=== PATIENT | male | born 1950 | race Caucasian/White ===

== ENCOUNTER 2016-10-23 15:11 | Observation (INO) | payer OTHER ==
[2016-10-23] MEDS ORDERED: MORPHINE SULFATE 4 MG/ML SYRINGE IV STA (15:54)
[2016-10-23] MEDS ORDERED: SODIUM CHLORIDE 0.9% 1,000 ML IV STA (15:54)
[2016-10-23] MEDS ORDERED: RX INFO: IV CONTRAST WAS GIVEN 1 EACH MISC MISCELLANE PRN (15:58)
[2016-10-23 16:28] LABS: Basophils % (A) 0 %; CH 30.5; CHCM 34.4; Eosinophils # (A) 0.2 k/uL (0-0.7); Eosinophils % (A) 2 %; HCT 46.4 % (39.0-53.0); HDW 2.51; HGB 15.7 gm/dL (13.0-17.5); Luc # (Auto) 0.14; Luc % (Auto) 2; Lymphocytes # (A) 1.6 k/uL (1.0-4.8); Lymphocytes % (A) 19 %; MCH 30.1 pg (25.0-35.0); MCHC 33.7 g/dL (31.0-37.0); MCV 89.2 fL (80.0-100.0); Mean Platelet Volume 6.1; Monocytes # (A) 0.4 k/uL (0-1.0); Monocytes % (A) 5 %; Neutrophils # (A) 6.1 k/uL (1.3-7.7); Neutrophils % (A) 72 %; RBC 5.21 m/uL (4.30-5.90); RDW 12.6 % (11.5-15.5); WBC 8.4 k/uL (3.8-10.6)
[2016-10-23 16:42] LABS: ALT 37 U/L (21-72); AST 24 U/L (17-59); Alkaline Phosphatase 88 U/L (38-126); Anion Gap 11 mmol/L; Blood Urea Nitrogen 25 mg/dL (9-20); Calcium 9.3 mg/dL (8.4-10.2); Carbon Dioxide 24 mmol/L (22-30); Chloride 107 mmol/L (98-107); Glucose 106 mg/dL (74-99); Non-African American GFR(MDRD) >60 (>60 ml/min/1.73 sqM); Potassium 4.3 mmol/L (3.5-5.1); Sodium 142 mmol/L (137-145); Total Bilirubin 0.7 mg/dL (0.2-1.3); Total Protein 6.9 g/dL (6.3-8.2)
--- NOTE | 2016-10-23 17:45 | CT ---
EXAMINATION TYPE: CT angio chest DATE OF EXAM: 10/23/2016 5:22 PM COMPARISON: NONE HISTORY: Patient complains of right side upper back pain. CT DLP: 395.9 mGycm Automated exposure control for dose reduction was used. CONTRAST: CTA scan of the thorax is performed with IV Contrast, patient injected with 100 mL of Omnipaque 350, pulmonary embolism protocol. . FINDINGS: There are 3-D post processed images. The lungs are clear of infiltrate. There is no evidence of a pulmonary mass. There is no pleural effu marta. There is no pericardial effusion. There is no mediastinal adenopathy. There are no hilar masses . There is no evidence of aortic aneurysm or dissection. I see no bony destructive process. The thora cic spine is intact. I see no filling defects in the pulmonary arteries. IMPRESSION: NEGATIVE CT ANGIOGRAM OF THE CHEST. NO EVIDENCE OF PULMONARY EMBOLISM.
--- NOTE | 2016-10-23 17:49 | ED ---
Back Pain HPI - General Chief Complaint: Back Pain/Injury Stated Complaint: Chest Pain Time Seen by Provider: 10/23/16 15:44 Source: patient Limitations: no limitations - History of Present Illness Initial Comments: Complaining about head and neck pain and right-sided chest pain, also complaining about the pain in the left side of the face has a history of heart disease with a [address] Eyes any shortness of breath denies any pleuritic chest pain denies any cough or sputum production. Eyes any nausea any vomiting any cold sweats. Denies any headaches no neck stiffness no frequency urgency dysuria - Related Data Previous Rx's Medication Instructions Recorded ALPRAZolam [Xanax] 0.25 mg PO TID PRN #20 tab 03/11/16 Aspirin 325 mg PO DAILY #30 tab 03/11/16 Atorvastatin [Lipitor] 80 mg PO HS #30 tab 03/11/16 Clopidogrel [Plavix] 75 mg PO DAILY #30 tab 03/11/16 HYDROcodone/APAP 5-325MG [[place] 1 each PO Q6HR PRN #20 tab 03/11/16 5-325] Metoprolol Tartrate [Lopressor] 12.5 mg PO DAILY #30 tab 03/11/16 Nitroglycerin Sl Tabs [Nitrostat] 0.4 mg SUBLINGUAL Q5M PRN #100 tab 03/11/16 Allergies Allergy/AdvReac Type Severity Reaction Status Date / Time NSAIDS (Non-Steroidal AdvReac Nausea & Verified 10/23/16 15:18 Anti-Inflamma Vomiting & Diarrhea Review of Systems ROS Statement: Those systems with pertinent positive or pertinent negative responses have been documented in the HPI. ROS Other: All systems not noted in ROS Statement are negative. Past Medical History Past Medical History: Diabetes Mellitus, Myocardial Infarction ([place]) Additional Past Medical History / Comment(s): Leaky valves History of Any Multi-Drug Resistant Organisms: MRSA Date of last positivie culture/infection: 2011 MDRO Source:: leg wound Past Surgical History: Heart Catheterization With Stent, Orthopedic Surgery Additional Past Surgical History / Comment(s): left thumb, carpel tunnel, right arm tendon shortened Past Psychological History: No Psychological Hx Reported Smoking Status: Former smoker Past Alcohol Use History: Occasional Past Drug Use History: None Reported General Exam - General Exam Comments Initial Comments: General: The patient is awake and alert, in no distress, and does not appear acutely ill. Skin: Skin is warm and dry and no rashes or lesions are noted. Eye: Pupils are equal, round and reactive to light, extra-ocular movements are intact; there is normal conjunctiva bilaterally. Ears, nose, mouth and throat: There are moist mucous membranes and no oral lesions. Neck: The neck is supple, there is no tenderness or JVD. Cardiovascular: There is a regular rate and rhythm. No murmur, rub or gallop is appreciated. Respiratory: To auscultation bilateral, no wheezing no rhonchi no distress respiratory lay noticed Gastrointestinal: Soft, non-distended, non-tender abdomen without masses or organomegaly noted. There is no rebound or guarding present. Bowel sounds are unremarkable. Back: There is no tenderness to palpation in the midline. There is no obvious deformity. Musculoskeletal: Normal ROM, no tenderness, There is no pedal edema. There is no calf tenderness or swelling. No cords were appreciated. Neurological: CN II-XII intact, Cranial nerves III through XII are intact. There are no obvious motor or sensory deficits. Coordination appears grossly intact. Speech is normal. Psychiatric: Cooperative, appropriate mood & affect, normal judgment. Limitations: no limitations Course Vital Signs 10/23/16 15:15 Temperature 98.1 F Pulse Rate 53 L Respiratory 18 Rate Blood Pressure 140/68 O2 Sat by Pulse 99 Oximetry EKG shows normal sinus rhythm with a bradycardia ventricular rate is 66 [place] interval is 140 QRS duration is 84 22/QTc is 420/45 review of this EKG does not reveal any ST elevation or ST depression Medical Decision Making - Lab Data Result diagrams: 10/23/16 16:11 10/23/16 16:11 Lab Results 10/23/16 10/23/16 10/23/16 Range/Units 16:11 16:11 16:11 WBC 8.4 (3.8-10.6) k/uL RBC 5.21 (4.30-5.90) m/uL Hgb 15.7 (13.0-17.5) gm/dL Hct 46.4 (39.0-53.0) % MCV 89.2 (80.0-100.0) fL MCH 30.1 (25.0-35.0) pg MCHC 33.7 (31.0-37.0) g/dL RDW 12.6 (11.5-15.5) % Plt Count 239 (150-450) k/uL Neutrophils % 72 % Lymphocytes % 19 % Monocytes % 5 % Eosinophils % 2 % Basophils % 0 % Neutrophils # 6.1 (1.3-7.7) k/uL Lymphocytes # 1.6 (1.0-4.8) k/uL Monocytes # 0.4 (0-1.0) k/uL Eosinophils # 0.2 (0-0.7) k/uL Basophils # 0.0 (0-0.2) k/uL Sodium 142 (137-145) mmol/L Potassium 4.3 (3.5-5.1) mmol/L Chloride 107 (98-107) mmol/L Carbon Dioxide 24 (22-30) mmol/L Anion Gap 11 mmol/L BUN 25 H (9-20) mg/dL Creatinine 0.87 (0.66-1.25) mg/dL Est GFR (MDRD) Af Amer >60 (>60 ml/min/1.73 sqM) Est GFR (MDRD) Non-Af >60 (>60 ml/min/1.73 sqM) Glucose 106 H (74-99) mg/dL Calcium 9.3 (8.4-10.2) mg/dL Total Bilirubin 0.7 (0.2-1.3) mg/dL AST 24 (17-59) U/L ALT 37 (21-72) U/L Alkaline Phosphatase 88 (38-126) U/L Troponin I <0.012 (0.000-0.034) ng/mL Total Protein 6.9 (6.3-8.2) g/dL Albumin 4.1 (3.5-5.0) g/dL Lipase 247 (23-300) U/L Disposition Clinical Impression: Neck pain, History of ischemic heart disease Disposition: ADMITTED IP TO THIS HOSP Condition: Good
[2016-10-23] MEDS ORDERED: ONDANSETRON 4 MG/2 ML VIAL IVP PRN (17:57)
[2016-10-23] MEDS ORDERED: MORPHINE SULFATE 4 MG/ML SYRINGE IV PRN (17:57)
[2016-10-23] MEDS ORDERED: NALOXONE 0.4 MG/ML 1 ML VIAL IV PRN (17:57)
[2016-10-23] MEDS ORDERED: ACETAMINOPHEN TAB 325 MG TAB PO PRN (17:57)
[2016-10-23] MEDS ORDERED: NITROGLYCERIN SL TABS 0.4 MG TAB SUBLINGUAL PRN (18:01)
[2016-10-23] MEDS ORDERED: ALPRAZolam 0.25 MG TAB PO PRN (18:01)
[2016-10-23] MEDS ORDERED: HEPARIN SODIUM,PORCINE 5,000 UNIT/ML 1 ML VIAL IV PRN (18:11)
[2016-10-23] MEDS ORDERED: HEPARIN SODIUM,PORCINE 5,000 UNIT/ML 1 ML VIAL IV ONE (18:11)
[2016-10-23] MEDS ORDERED: HEPARIN SODIUM,PORCINE/D5W PMX 25,000 UNIT in DEXTROSE/WATER 1 500ML.BAG IV SCH (18:15)
[2016-10-23 19:05] LABS: Prothrombin Time 10.5 sec (9.0-12.0)
[2016-10-23 19:13] VITALS: RESP 16
[2016-10-23] MEDS: HYDROcodone/APAP 5-325MG 1 EACH TAB PO PRN (20:52)
[2016-10-23] MEDS ORDERED: ATORVASTATIN 80 MG TAB PO SCH (21:00)
[2016-10-23 21:03] LABS: Glucose,Whole Blood 111 mg/dL (75-99)
[2016-10-24 02:28] LABS: Basophils % (A) 1 %; CH 30.4; CHCM 34.3; Eosinophils # (A) 0.1 k/uL (0-0.7); Eosinophils % (A) 1 %; HCT 42.9 % (39.0-53.0); HDW 2.55; HGB 14.7 gm/dL (13.0-17.5); Luc # (Auto) 0.11; Luc % (Auto) 1; Lymphocytes # (A) 1.7 k/uL (1.0-4.8); Lymphocytes % (A) 20 %; MCH 30.6 pg (25.0-35.0); MCHC 34.3 g/dL (31.0-37.0); MCV 89.2 fL (80.0-100.0); Mean Platelet Volume 7.1; Monocytes # (A) 0.5 k/uL (0-1.0); Monocytes % (A) 6 %; Neutrophils # (A) 6.1 k/uL (1.3-7.7); Neutrophils % (A) 72 %; RBC 4.81 m/uL (4.30-5.90); RDW 12.5 % (11.5-15.5); WBC 8.5 k/uL (3.8-10.6); WBC (Perox) 8.83
[2016-10-24 05:31] LABS: Creatine Kinase 76 U/L (55-170)
[2016-10-24 05:42] LABS: Troponin I <0.012 ng/mL (0.000-0.034)
[2016-10-24 06:33] LABS: Glucose,Whole Blood 93 mg/dL (75-99)
[2016-10-24] MEDS ORDERED: METOPROLOL TARTRATE 12.5 MG TAB PO SCH (09:00)
[2016-10-24] MEDS ORDERED: CLOPIDOGREL 75 MG TAB PO SCH (09:00)
[2016-10-24] MEDS ORDERED: ASPIRIN 325 MG TAB PO SCH (09:00)
[2016-10-24] MEDS ORDERED: REGADENOSON 0.4 MG/5 ML SYRINGE IV ONE (09:32)
[2016-10-24] MEDS ORDERED: AMINOPHYLLINE 500 MG/20 ML VIAL IV PRN (09:32)
[2016-10-24 10:29] LABS: Creatine Kinase 64 U/L (55-170)
[2016-10-24 10:42] LABS: Creatine Kinase MB 2.1 ng/mL (0.0-2.4); Troponin I <0.012 ng/mL (0.000-0.034)
[2016-10-24 12:02] LABS: Hemoglobin A1C 5.7 % (4.2-6.1)
--- NOTE | 2016-10-24 13:03 | NM ---
EXAMINATION TYPE: NM stress Lexiscan cardiolite DATE OF EXAM: 10/24/2016 12:48 PM COMPARISON: NONE HISTORY: Chest pain TECHNIQUE: After the intravenous administration of 11.0 mCi Tc 99m Sestamibi - Cardiolite resting SP ECT images acquired 45 minutes post injection. The patient received 0.4mg Lexiscan, 23.7 mCi Tc 99m Sestamibi - Stress images obtained [address] injection FINDINGS: Review of stress and rest SPECT images demonstrates no distinct perfusion abnormality. Gated analysi s shows normal wall motion with an estimated left ventricular ejection fraction of 69 %. IMPRESSION: No scintigraphic evidence for reversible ischemia.
[2016-10-24] MEDS: HYDROcodone/APAP 5-325MG 1 EACH TAB PO PRN (13:46)
--- NOTE | 2016-10-24 14:13 | EST ---
DATE OF SERVICE: 10/24/2016 AGE: 66Y SEX: M HT: 68" WT: 216 lbs. Lexiscan Cardiolite Stress Test *Heart Rate Blood Pressure *Rest: 52 Rest: 126/86 * *Max. Achieved: 59 Maximum BP: 157/51 85% PMHR: 132 100% PMHR: 155 *METS: - INDICATIONS: Chest pain. MEDICATIONS: Aspirin, Lipitor, Plavix, Lopressor, Nitrostat. Baseline rhythm is sinus mechanism, rate of 52, normal axis and intervals normal. Baseline blood pressure 126/86 mmHg. Patient received an injection of Lexiscan. Electrocardiograph monitoring revealed no evidence of ischemic ST-segment changes. Cardiolite was injected per protocol. CONCLUSION: 1. Nondiagnostic electrocardiograph stress testing. 2. Nuclear images will be reported separately.
--- NOTE | 2016-10-24 15:57 | CONS ---
DATE OF CONSULTATION: REASON FOR CONSULTATION: Patient admitted to the hospital with chest pain and intrascapular pain. HISTORY OF PRESENT ILLNESS: Mr. Chon Franks is a known patient of atherosclerotic heart disease with anterolateral myocardial infarction, underwent angioplasty stenting of the diagonal and RCA done in February 2016. Patient follows with Dr. Milan. Patient has been complaining of pain in the interscapular area and left shoulder area on the right scapular area and right shoulder pain which is aggravated by local movement of the arm suggestive of musculoskeletal origin suggestive of any underlying ischemic heart disease because of the previous history of stenting. Patient is unable to walk on the treadmill because of ( ) of the foot wound. Will do a Lexiscan Cardiolite study. Patient's EKGs are normal. Enzymes are normal. Patient used to be a smoker. Quit smoking. Patient CT of the chest was negative for any pulmonary embolism. Patient is also a diabetic. Patient's medications prior to admission: 1. Xanax. 2. Aspirin 1 tablet daily. 3. Atorvastatin 80 mg. 4. Plavix 75 mg p.o. daily. 5. Hydrocodone. 6. [place] as needed. 7. Metoprolol tartrate 12.5 mg p.o. daily. 8. Nitroglycerin sublingually p.r.n. for chest pain. Patient is intolerant of anti-inflammatory agents. Patient's review of systems is essentially unremarkable other than history of diabetes, controlled by diet appears to be. History of myocardial infarction and stenting of the diagonal RCA done in February 2016. History of a MRSA, history of carpal tunnel, right arm tendon shortened. Physical examination revealed well-developed and well-nourished 66-year-old gentleman, not in any acute distress, oriented x3 with a pulse rate of 57 beats per minute and regular, blood pressure of 106/61, respirations of 16. Head normocephalic. HEENT unremarkable. NECK: Supple. No thyroid enlargement. No bruit noted. Good carotid upstroke bilaterally. Chest is symmetrical. The patient noted examination of the chest with right arm movement. Patient complains of pain in the shoulder area, right shoulder area and back, appears to musculoskeletal. Neck is supple. No JVD. CARDIAC EXAMINATION: S1 and S2. Lungs are clinically to auscultation and percussion. ABDOMEN: Soft, no organomegaly. Active bowel sounds. EXTREMITIES: Peripheral pulses. No pedal edema. ASSESSMENT: 1. Atypical chest pain. 2. Status post lateral myocardial infarction with stenting of the diagonal and RCA done in February 2016. 3. Ex-smoker. 4. Hyperlipidemia. RECOMMENDATIONS: Proceed with a Lexiscan. If the scan is normal, patient should be able to go home as long as approved by Dr. Cortés and follow with Dr. Milan.
[2016-10-24] MEDS ORDERED: KETOROLAC 30 MG/ML 1 ML VIAL IVP STA (16:22)
[2016-10-24 16:25] VITALS: BP 116/59; PULSE 62; TEMP 98.1
--- NOTE | 2016-10-24 17:55 | XR ---
EXAMINATION TYPE: XR shoulder complete RT DATE OF EXAM: 10/24/2016 5:47 PM COMPARISON: NONE HISTORY: Shoulder pain TECHNIQUE: 3 views FINDINGS: I see no fracture nor dislocation. Joint spaces are normal. There are no pathologic calcifi cations. IMPRESSION: Negative right shoulder exam.
[2016-10-25 07:42] LABS: Creatine Kinase MB 2.7 ng/mL (0.0-2.4)
--- NOTE | 2016-10-25 10:34 | HP ---
DATE OF ADMISSION: DATE OF SERVICE: 10/24/2016 CHIEF COMPLAINT: Chest pain. HISTORY OF PRESENT ILLNESS: Mr. Franks is a 66-year-old male with known history of coronary artery disease with stent placement in February 2016, hypertension, hyperlipidemia, history of myocardial infarction who came to the hospital with complaints of chest pain, mainly in the right side. Patient's pain started mid-back region under the shoulder blade and shooting out of the right chest, burning sensation. Patient denied any trauma. Patient says pain gets worse with right shoulder lifting above the head. No nausea or vomiting. No headache or dizziness, lightheadedness. Troponins are negative. CT chest results are negative for pulmonary embolism. No bony abnormalities noted on the CT chest. Patient also had recent Achilles tendinitis and unable to walk on treadmill. REVIEW OF SYSTEMS: CONSTITUTIONAL: No fever. No chills. No weakness, malaise. RESPIRATORY: No cough or sputum production. CARDIOVASCULAR: No chest pain. No short of breath. No leg swelling. ABDOMEN: No nausea, vomiting or abdominal pain. ENDOCRINE: Negative. PSYCHIATRIC: Negative. SKIN: Negative. All other fourteen-point review of systems negative except as above. PAST MEDICAL HISTORY: Hypertension, diabetes mellitus, history of [place], coronary artery disease, status post stent placement, history of methicillin-resistant Staphylococcus aureus of the leg wound. PAST SURGICAL HISTORY: Cardiac catheterization and stent placement, left thumb surgery, carpal tunnel, right arm tendon shortened. SOCIAL HISTORY: Patient is a former smoker, occasional alcohol use. Denied any drugs or IVDU. ALLERGIES: NSAIDS. Home medication include: Xanax, aspirin, Lipitor, Plavix, [place], metoprolol, nitroglycerin sublingual p.r.n. FAMILY HISTORY: Denied any history of hypertension, diabetes mellitus or premature heart disease in the family. PHYSICAL EXAMINATION: A 66-year-old female lying in bed comfortably, awake, alert, oriented x3, appears in be in no apparent distress. VITALS: Blood pressure is 110/64, pulse is 60, respiration 16, temperature afebrile, pulse ox 96% on room air. HEENT: Atraumatic, normocephalic. Neck is supple. No JVD. CVS: S1, S2 heard. No murmurs, no gallop, no rub. LUNGS: Bilateral air entry is present. No wheezing. No crackles. ABDOMEN: Soft, nontender. Bowel sounds present. FORESTRY EXTENSION SPECIALIST: Awake alert and oriented x3. No focal deficit. EXTREMITIES: No edema. Pulses palpable. No clubbing or cyanosis. MUSCULOSKELETAL: The patient does have pain in the right shoulder with lifting up over the head. PSYCHIATRIC: Cooperative. LABORATORY DATA: WBC 8.4, hemoglobin 15.7, platelets 239, INR 1.0. Sodium 142, potassium 4.3, chloride 107, bicarb is 24, BUN 25, creatinine 0.87. Hb1Ac 5.7. Calcium 9.3. Liver enzymes are not elevated. Troponin x3 negative. Lipase 247. EKG: Sinus bradycardia and CT angiogram showed no pulmonary embolism. IMPRESSION: 1. Atypical chest pain most likely musculoskeletal in origin, rule out acute coronary syndrome due to history of coronary artery disease recently. 2. History of coronary artery disease, status post stent placement x2 in February 2016. 3. Achilles tendinitis unable to bear weight on the right foot. 4. Previous history of smoking. 5. Hyperlipidemia. DISCUSSION AND PLAN: A 66-year-old male admitted to the hospital with chest pain mainly right-sided and worsens with shoulder movement, most likely musculoskeletal, rule out acute coronary syndrome with serial EKGs and troponins due to recent history of coronary artery disease and stent placement. Will continue with telemonitoring and further recommendations based on Cardiology recommendations. Patient recommended Lexiscan stress test as per Cardiology.
--- NOTE | 2016-10-25 20:43 | DS ---
DATE OF ADMISSION: 10/23/2016 DATE OF DISCHARGE: 10/24/2016 Cardiology consultation and Lexiscan stress test. DISCHARGE DIAGNOSES: 1. Atypical chest pain, rule out acute coronary syndrome, most likely musculoskeletal. 2. Recent history of coronary artery disease with stent placement x2. 3. Right leg ( ) tendinitis. 4. Hypertension. 5. Hyperlipidemia. HOSPITAL COURSE: 66 -year-old male with known history of coronary artery disease admitted to the hospital with complaints of chest pain mainly right sided associated with burning and radiating to the back and into the right shoulder. Patient does have atypical chest pain due to history of coronary artery disease, the patient underwent Lexiscan stress test as per cardiology recommendations which showed no inducible ischemia. Otherwise, the patient was given pain management in the form of Tylenol as well as Toradol. Pain improved well and also patient had a right shoulder x-ray normal exam and also CT angiogram showed no bony abnormalities. Patient denied any weakness in the right hand. No numbness or tingling now. The patient will be discharged and followed with the primary care physician. Cardiology follow-up as well. DISCHARGE PHYSICAL EXAMINATION: 66-year-old male lying in bed comfortably, awake, alert, oriented times three, appears to be in no apparent distress. VITAL SIGNS: Blood pressure is 116/59, pulse is 62, respiratory rate 16, temperature afebrile, pulse ox 97% on room air. LABORATORY DATA: Reviewed. Discharge physical examination done. Discharge medications include: 1. Aspirin 320 mg p.o. daily. 2. Atorvastatin 80 mg p.o. at bedtime. 3. Plavix 75 mg p.o. daily. 4. ( ) 12.5 mg p.o. daily. 5. Nitrostat 0.4 mg sublingual q.5 minutes p.r.n. for chest pain. The patient will be discharged home in stable condition. Activity as tolerated. Heart healthy diet. Follow-up with Dr. Genesis Newell in one to two days.
== END 2016-10-24 18:22 | disposition home or self-care (01) ==
LOC: EC 15:11 → 3OBS 17:57
PROVIDERS: ADMIT Hospitalist; ATTEND Hospitalist
DX: R07.89 Other chest pain (principal); M54.2 Cervicalgia; M25.511 Pain in right shoulder; R51 Headache; Z88.6 Allergy status to analgesic agent; E11.9 Type 2 diabetes mellitus without complications; I25.2 Old myocardial infarction; I25.10 Atherosclerotic heart disease of native coronary artery without angina pectoris; E78.5 Hyperlipidemia, unspecified; I10 Essential (primary) hypertension; Z95.5 Presence of coronary angioplasty implant and graft; Z86.14 Personal history of Methicillin resistant Staphylococcus aureus infection; Z79.82 Long term (current) use of aspirin; Z79.02 Long term (current) use of antithrombotics/antiplatelets; Z79.899 Other long term (current) drug therapy; Z87.891 Personal history of nicotine dependence
CPT/HCPCS: 96361 ×4; 96376 ×2; 96374 ×2; 99285 ×2; 96375 ×2; 36415; 93005; 93017; 80053; 83036; 82550; 82553; 83690; 84484 ×2; 85025 ×2; 85610; 85730 ×2; 73030; 71275; 78452; G0378 ×2; A9500; J2270; J1644 ×2; Q9967; J1885; J2785; 96366

== ENCOUNTER 2016-10-25 06:29 | Emergency (ER) | payer OTHER ==
[2016-10-25 06:35] VITALS: RESP 20
[2016-10-25] MEDS ORDERED: predniSONE 20 MG TAB PO STA (07:01)
[2016-10-25] MEDS ORDERED: DIAZEPAM 5 MG/ML 2 ML SYRINGE IM ONE (07:01)
[2016-10-25] MEDS ORDERED: KETOROLAC 30 MG/ML 1 ML VIAL IM STA (07:01)
--- NOTE | 2016-10-25 07:06 | ED ---
Neck Injury/Pain HPI - General Chief Complaint: Neck Pain/Injury Stated Complaint: neck pain Time Seen by Provider: 10/25/16 06:54 Mode of arrival: wheelchair Limitations: no limitations - History of Present Illness Initial Comments: This is a 66-year-old male who presents emergency department for neck pain. He states is been going on for the last week and a half. It seems to radiate down his right arm. Also has some numbness and he reports weakness because of this. He denies any injury to the area. No previous history of this. He denies any chest pain or shortness of breath. He was seen in the hospital recently and had a full cardiac workup for this pain that was negative. He was sent home after getting Toradol however stated that the pain returned and is not worse. He states that it's worse with any turning of his head or moving his arm. He states if he moves his arm up against more numb. He describes it as shooting and burning pain. No other complaints. - Related Data Previous Rx's Medication Instructions Recorded Aspirin 325 mg PO DAILY #30 tab 03/11/16 Atorvastatin [Lipitor] 80 mg PO HS #30 tab 03/11/16 Clopidogrel [Plavix] 75 mg PO DAILY #30 tab 03/11/16 Metoprolol Tartrate [Lopressor] 12.5 mg PO DAILY #30 tab 03/11/16 Nitroglycerin Sl Tabs [Nitrostat] 0.4 mg SUBLINGUAL Q5M PRN #100 tab 03/11/16 HYDROcodone/APAP 5-325MG [[place] 1 - 2 tab PO Q6HR PRN #20 tab 10/25/16 5-325] Methocarbamol [Robaxin] 750 mg PO QID #20 tab 10/25/16 methylPREDNISolone Dose Pack 4 mg PO DIRECTED #21 package 10/25/16 [Medrol Dose Pack] Allergies Allergy/AdvReac Type Severity Reaction Status Date / Time NSAIDS (Non-Steroidal AdvReac Nausea & Verified 10/25/16 07:45 Anti-Inflamma Vomiting & Diarrhea Review of Systems ROS Statement: Those systems with pertinent positive or pertinent negative responses have been documented in the HPI. ROS Other: All systems not noted in ROS Statement are negative. Past Medical History Past Medical History: Coronary Artery Disease (CAD), Diabetes Mellitus, Hyperlipidemia, Myocardial Infarction ([place]) Additional Past Medical History / Comment(s): Leaky valves, diet controlled dm Last Myocardial Infarction Date:: 02/2016 History of Any Multi-Drug Resistant Organisms: MRSA Date of last positivie culture/infection: 2011 MDRO Source:: leg wound Past Surgical History: Heart Catheterization With Stent, Orthopedic Surgery Additional Past Surgical History / Comment(s): february 2016 2 stents,left thumb, carpel tunnel, right arm tendon shortened Past Anesthesia/Blood Transfusion Reactions: No Reported Reaction Date of Last Stent Placement:: 02/2016 Past Psychological History: No Psychological Hx Reported Smoking Status: Former smoker Past Alcohol Use History: Occasional Past Drug Use History: None Reported - Past Family History Father Family Medical History: Cancer Mother Family Medical History: Cancer General Exam - General Exam Comments Initial Comments: Constitutional: Awake alert Appears comfortable Head: Normocephalic atraumatic Eyes: no conjunctival injection No scleral icterus EOMI Neck: No JVD tenderness to palpation along the lower cervical spine. Seems to be worse over C7. He has tenderness along the right trapezius going into his right arm., There is a positive Spurling's test to the right Heart: Regular rate rhythm normal S1-S2 no murmurs Lungs: Clear to auscultation bilaterally No wheezing No rales Abdomen: Soft nondistended nontender Extremities: Non edematous DP pulses intact Radial pulses intact Neuro: A&Ox3 there is 5 out of 5 strength in the left upper extremity with body painter strength and flexion and extension of the elbow. The patient has 5 out of 5 strength with flexion and extension of the elbow of the right arm however slightly decreased strength of body painter strength. The patient is unsure if it's because of pain or actual weakness. He does report decreased sensation in the right arm generally but does not follow a dermatomal pattern. He has 5 out of 5 strength in bilateral lower extremities sensation intact to the lower extremities as well. Psych: Appropriate mood and affect Limitations: no limitations Course Vital Signs 10/25/16 10/25/16 10/25/16 06:32 07:30 08:22 Temperature 97.5 F L 97.1 F L Pulse Rate 57 L 51 L 52 L Respiratory 20 20 20 Rate Blood Pressure 121/60 133/64 119/68 O2 Sat by Pulse 97 98 99 Oximetry Medical Decision Making - Medical Decision Making This is a 66-year-old male who presents emergency department for neck pain and arm pain. He is evaluated bedside and found to have decreased sensation and a little bit decreased body painter strength when compared to the right however still 5 out of 5 strength in the right arm. The patient was given Toradol, Valium, Dilaudid, and gabapentin with improvement in his pain. He states he still had some discomfort however it was improved. CT of the cervical spine did show some neural foraminal narrowing on the right. I believe the patient's symptoms are likely due to this. He also has evidence for spasm on his cervical spine spine film. Going to send the patient home with [place], Robaxin, and a Medrol Dosepak that he can use for the discomfort. He needs close follow-up with his primary doctor and likely referral for physical therapy. If his symptoms do not improve he would likely benefit from an outpatient MRI for further evaluation. There is no indication for emergent MRI at this time. Patient agreed with this plan and stated that he would return if any worsening or changing symptoms. All questions were answered. Disposition Clinical Impression: Neck pain, Radiculopathy Disposition: HOME SELF-CARE Condition: Stable Instructions: Cervical Radiculopathy (ED), Neck Pain (ED) Prescriptions: HYDROcodone/APAP 5-325MG [[place] 5-325] 1 - 2 tab PO Q6HR PRN #20 tab PRN Reason: Mod-Severe Pain Methocarbamol [Robaxin] 750 mg PO QID #20 tab methylPREDNISolone Dose Pack [Medrol Dose Pack] 4 mg PO DIRECTED #21 package Referrals: Genesis Newell DO [Primary Care Provider] - 1-2 days
[2016-10-25 07:31] VITALS: TEMP 97.1
[2016-10-25] MEDS ORDERED: HYDROmorphone 1 MG/ML 1 ML SYRINGE IM STA (08:07)
[2016-10-25] MEDS ORDERED: GABAPENTIN 300 MG CAP PO STA (08:09)
[2016-10-25 08:23] VITALS: BP 119/68; PULSE 52
--- NOTE | 2016-10-25 08:23 | CT ---
EXAMINATION TYPE: CT cervical spine wo con DATE OF EXAM: 10/25/2016 7:59 AM COMPARISON: NONE HISTORY: Rt sided neck pain radiating down right arm for [address] DLP: 920 mGycm. Automated Exposure Control for Dose Reduction was Utilized. TECHNIQUE: CT scan of the cervical spine is obtained without contrast, axial images are obtained, sa gittal and coronal reformatted images are also reviewed. FINDINGS: Cervical spine is visualized in its entirety from C1 through upper thoracic levels, demonst rates straightens alignment without evidence of acute fracture or dislocation. Prevertebral soft tis bisi appears within normal limits. The C1-C2 articulation is within normal limits on the coronal imag es. Vertebral body heights are maintained. There is moderate disc space narrowing C5-C6 level with mild t o moderate spurring. Posterior spurs from superior C5 and C6 vertebra effacing anterior thecal sac on sagittal image 22. Review of axial images shows the C2-C3 and C3-C4 levels to appear within normal limits. Axial images at C4-C5 level show right-sided spur disc complex effacing anterolateral thecal sac and causing asymmetric mild to moderate right-sided neural foraminal narrowing on axial image 55. Left-si ded neural foramen is patent. There is effacement of the anterior thecal sac at superior C5 vertebral body level confirmed on axial image 57 due to posterior spur Axial images at the C5-C6 level shows posterior spur disc complex with marginal spurring causing mode rate left greater than right neural foraminal narrowing. There is effacement anterior thecal sac seen . Axial images at C6-C7 level and C7-T1 levels are felt within normal limits. Disc herniation is less w ell evaluated on CT at lower cervical levels, consider MRI correlation. IMPRESSION: Slight reversal of normal cervical curvature with multilevel degenerative changes most pr ominent in the mid cervical spine as detailed above. Right-sided moderate neural foraminal narrowing C4-C5 and C5-C6 levels is present.
== END 2016-10-25 08:43 | disposition home or self-care (01) ==
LOC: EC 06:29
DX: M54.2 Cervicalgia (principal); M54.10 Radiculopathy, site unspecified; E78.5 Hyperlipidemia, unspecified; Z88.6 Allergy status to analgesic agent; Z79.82 Long term (current) use of aspirin; Z87.891 Personal history of nicotine dependence; Z79.02 Long term (current) use of antithrombotics/antiplatelets; Z79.899 Other long term (current) drug therapy
CPT/HCPCS: 99284; 96372 ×3; 72125; J3360; J1885; J1170; J7512

== ENCOUNTER → 2016-12-20 | Outpatient (CLI) | payer OTHER ==
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
== END | disposition home or self-care (01) ==
LOC: RADMRIMAIN 17:34
PROVIDERS: ATTEND Family Medicine
DX: M48.02 Spinal stenosis, cervical region (principal); M50.223 Other cervical disc displacement at C6-C7 level; M50.31 Other cervical disc degeneration, high cervical region; M48.8X2 Other specified spondylopathies, cervical region
CPT/HCPCS: 72141

== ENCOUNTER → 2018-03-08 | Outpatient (CLI) | payer MEDICARE ==
--- NOTE | 2018-03-09 02:36 | MR ---
EXAMINATION TYPE: MR knee RT wo con DATE OF EXAM: 03/08/2018 COMPARISON: None HISTORY: Rt knee pain x several years TECHNIQUE: Multiplanar, multisequence imaging of the right knee is performed without IV contrast. FINDINGS: There is mild knee joint effusion. There is intact anterior and posterior cruciate ligaments. The med ial and lateral menisci have fairly normal signal pattern. There is very minimal increased signal wit hin the substance of the menisci without a complete tear. The collateral ligaments appear intact. Joint spaces are fairly normal. There is no evidence of a fra cture. I see no bony destructive process. There are tiny 3 mm degenerative cysts in the superior and inferior patella. IMPRESSION: Small degenerative cysts in the patella. No fracture. Minor degenerative signal changes in the menisc i without a meniscal tear. No ligamentous tear.
== END | disposition home or self-care (01) ==
LOC: RADMRIMAIN 17:21
PROVIDERS: ATTEND Family Medicine
DX: M17.11 Unilateral primary osteoarthritis, right knee (principal)

== ENCOUNTER → 2018-07-05 | Outpatient (CLI) | payer MEDICARE ==
--- NOTE | 2018-07-05 10:36 | XR ---
EXAMINATION TYPE: XR cervical spine 5 views comp, XR thoracic spine 3 views complete DATE OF EXAM: 07/05/2018 COMPARISON: None HISTORY: 67-year-old male with neck and back pain after fall FINDINGS: Cervical spine: There is C5-T1 ACDF. Alignment is maintained. Mild degenerative disc interspace narrowing above the f usion at C4-C5. No predental space widening or prevertebral soft tissue swelling. On the right, there is mild bony spondylotic neural foraminal narrowing at C4-C5 and C5-C6. On the le ft, there is moderate bony spondylotic neural foraminal narrowing at C5-C6 and C6-C7. Normal odontoid view. Thoracic spine: 12 rib bearing thoracic vertebral bodies. All pedicles are visualized. Mild endplate spondylosis mid to lower thoracic spine. Vertebral body heights are preserved and alignment is maintained. IMPRESSION: 1. Cervical spine: Status post C5-T1 ACDF. Mild degenerative disc disease above the fusion at C4-C5. Bony spondylotic change contributes to moderate left-sided neuroforaminal narrowing at C5-C6 and C6/C 7 and mild on the right at C4-C5 and C5-C6. 2. Thoracic spine: Very mild spondylotic change. No vertebral compression collapse or malalignment.
== END ==
LOC: RADXRMAIN 09:07
PROVIDERS: ATTEND Family Medicine
DX: M99.71 Connective tissue and disc stenosis of intervertebral foramina of cervical region (principal); M50.321 Other cervical disc degeneration at C4-C5 level; M47.894 Other spondylosis, thoracic region; Z98.1 Arthrodesis status; Z98.890 Other specified postprocedural states
CPT/HCPCS: 72050; 72072

== ENCOUNTER 2019-01-17 09:29 | Day surgery (SDC) | payer MEDICARE ==
[2019-01-15 10:48] VITALS: BMI 30.1
[~2019-01-17 09:29] MED LIST: LACTATED RINGERS 1,000 ML IV SCH; LIDOCAINE 1% 20 ML VIAL (10MG/ML) FOR IV START INTRADERMA PRN
[2019-01-17 09:53] VITALS: RESP 16; TEMP 96.5
[2019-01-17] MEDS ORDERED: PROPOFOL 10 MG/ML 20 ML VIAL IV ONE (11:04)
--- NOTE | 2019-01-17 11:47 | P.PCN ---
Date of Procedure: 01/17/19 Description of Procedure: BRIEF HISTORY: Patient is a 68-year-old pleasant male scheduled for an elective colonoscopy as a part of investigation of symptoms of bright red blood per rectum. The patient has had no prior colonoscopy performed. He denies any abdominal pain, change in bowel habits, constipation or diarrhea but does state that he had episodes of blood per rectum. He describes as mainly blood on the toilet paper with wiping. No family history of colon cancer. PROCEDURE PERFORMED: Colonoscopy with polypectomy. PREOPERATIVE DIAGNOSIS: Blood per rectum, no prior history of colonoscopy. ESTIMATED BLOOD LOSS: Minimal. IV sedation per Anesthesia. PROCEDURE: After informed consent was obtained, the patient, was brought into the endoscopy unit. IV sedation was administered by Anesthesia under continuous monitoring. Digital rectal examination was normal. Initially the Olympus CF-190 flexible video colonoscope was then inserted in the rectum, gradually advanced into the cecum without any difficulty. The terminal ileum was intubated and appeared normal. Careful examination was performed as the scope was gradually being withdrawn. Ileocecal valve and the appendiceal orifice were visualized and appeared normal. Prep was excellent. Mucosa of the cecum, ascending colon, transverse colon, descending colon, sigmoid colon, and rectum appeared normal. 3 diminutive polyps measuring 2-3 mm were noted in the transverse colon, descending colon and sigmoid colon and were removed by cold forcep polypectomy. Mild internal hemorrhoids. Retroflexion was performed in the rectum and no lesions were seen. The patient tolerated the procedure well. IMPRESSION: 3 diminutive colon polyps removed with cold forcep. Mild internal hemorrhoids. Normal-appearing colon from rectum to cecum . RECOMMENDATIONS: Findings of this examination were discussed with the patient and his . Okay to resume diet. Await pathology from polypectomy. Anticipate repeat colonoscopy in 3-5 years depending on pathology from polypectomy.
[2019-01-17 12:13] VITALS: BP 122/68; PULSE 62
== END 2019-01-17 12:30 | disposition home or self-care (01) ==
LOC: ORWHC2ENDO 09:29
PROVIDERS: ATTEND Internal Medicine
DX: D12.3 Benign neoplasm of transverse colon (principal); K64.8 Other hemorrhoids; K63.5 Polyp of colon; I25.10 Atherosclerotic heart disease of native coronary artery without angina pectoris; I25.2 Old myocardial infarction; E78.5 Hyperlipidemia, unspecified; I10 Essential (primary) hypertension; Z79.82 Long term (current) use of aspirin; Z79.899 Other long term (current) drug therapy; Z88.6 Allergy status to analgesic agent; Z95.5 Presence of coronary angioplasty implant and graft; Z87.891 Personal history of nicotine dependence; Z80.1 Family history of malignant neoplasm of trachea, bronchus and lung
CPT/HCPCS: 88305; 45380; J2704

== ENCOUNTER 2019-03-07 07:38 | Day surgery (SDC) | payer MEDICARE ==
[2019-03-01 15:27] VITALS: BMI 30.4
[~2019-03-07 07:38] MED LIST changes: +DEXAMETHASONE SOD PHOSPHATE 10 MG/ML 1 ML VIAL IV ONE; +HEPARIN SODIUM,PORCINE 5,000 UNIT/ML 1 ML VIAL SQ ONE; +HYDROmorphone 0.5 MG/0.5 ML SYRINGE IVP PRN; +MIDAZOLAM 2 MG/2 ML VIAL IV PRN; +ONDANSETRON 4 MG/2 ML VIAL IVP ONE; +Pre Op ABX Message 1 EACH MISC MISCELLANE ONE; +SCOPOLAMINE 1.5MG/72HR PATCH TRANSDERM ONE
[2019-03-07] MEDS ORDERED: NA PHOS,M-B/NA PHOS,DI-BA 133 ML ENEMA RECTAL ONE (07:51)
[2019-03-07 08:08] VITALS: TEMP 98.7
--- NOTE | 2019-03-07 08:26 | P.GSHP ---
History of Present Illness H&P Date: 03/07/19 Chief Complaint: Hemorrhoids This is a 68-year-old male who's had issues with hemorrhoids. Patient was recently found have internal and external hemorrhoids. He presents today for repair. He's had issues with rectal bleeding pain and itching. Past Medical History Past Medical History: Coronary Artery Disease (CAD), Hyperlipidemia, Hypertension, Myocardial Infarction (MT) Additional Past Medical History / Comment(s): Leaky valves, Last Myocardial Infarction Date:: 02/2016 History of Any Multi-Drug Resistant Organisms: MRSA Date of last positivie culture/infection: 2011 MDRO Source:: leg wound Past Surgical History: Heart Catheterization With Stent, Orthopedic Surgery Additional Past Surgical History / Comment(s): February 2016 2 stents, NECK FUSION, left thumb, RT carpal tunnel, right arm tendon shortened Past Anesthesia/Blood Transfusion Reactions: No Reported Reaction Date of Last Stent Placement:: 02/2016 Smoking Status: Former smoker - Past Family History Father Family Medical History: Cancer Mother Family Medical History: Cancer Additional Family Medical History / Comment(s): Small cell Medications and Allergies Home Medications Medication Instructions Recorded Confirmed Type Aspirin 325 mg PO DAILY #30 tab 03/11/16 03/07/19 Rx Metoprolol Tartrate [Lopressor] 12.5 mg PO DAILY #30 tab 03/11/16 03/07/19 Rx Nitroglycerin Sl Tabs [Nitrostat] 0.4 mg SUBLINGUAL Q5M PRN #100 tab 03/11/16 03/07/19 Rx Atorvastatin [Lipitor] 80 mg PO DAILY 03/01/19 03/07/19 History Allergies Allergy/AdvReac Type Severity Reaction Status Date / Time NSAIDS (Non-Steroidal AdvReac Nausea & Verified 03/07/19 07:58 Anti-Inflamma Vomiting & Diarrhea Surgical - Exam Vital Signs Temp Pulse Resp BP Pulse Ox 98.7 F 51 L 18 123/70 95 03/07/19 08:06 03/07/19 08:06 03/07/19 08:06 03/07/19 08:06 03/07/19 08:06 - General well developed, well nourished, no distress - Eyes PERRL - ENT normal pinna - Neck no masses - Respiratory normal expansion - Cardiovascular Rhythm: regular - Abdomen Abdomen: soft, non tender - Rectum Internal and external hemorrhoids Assessment and Plan Assessment: Hemorrhoids. We'll perform hemorrhoidectomy
[2019-03-07] MEDS ORDERED: PROPOFOL 10 MG/ML 20 ML VIAL IV ONE (08:40)
[2019-03-07] MEDS ORDERED: MIDAZOLAM 2 MG/2 ML VIAL ONE (08:40)
[2019-03-07] MEDS ORDERED: KETAMINE 10 MG/ML 20 ML VIAL ONE (08:40)
[2019-03-07] MEDS ORDERED: GLYCOPYRROLATE 0.2 MG/ML 2 ML VIAL ONE (08:40)
[2019-03-07] MEDS ORDERED: fentaNYL (PF) 50 MCG/ML 2 ML AMP ONE (08:40)
[2019-03-07] MEDS ORDERED: BUPIVACAIN-EPI 0.25%-1:200,000 30 ML VIAL SQ ONE (09:01)
[2019-03-07] MEDS ORDERED: SODIUM CHLORIDE 0.9% 50 ML with ceFAZolin 2,000 MG IV ONE ×2 (09:05)
[2019-03-07] MEDS ORDERED: GELATIN SPONGE,ABSORB (LARGE) 1 EACH SPONGE TOPICAL ONE (09:17)
--- NOTE | 2019-03-07 09:20 | P.OP ---
Date of Procedure: 03/07/19 Preoperative Diagnosis: Internal and external hemorrhoids Postoperative Diagnosis: Internal and external hemorrhoids Procedure(s) Performed: Internal and external hemorrhoidectomy Anesthesia: MAC, local Surgeon: Kevin Vila Estimated Blood Loss (ml): 5 Pathology: other (Hemorrhoids) Condition: stable Disposition: PACU Description of Procedure: The patient's placed on the room table in the prone position. He received IV sedation. His anus was prepped and draped usual fashion. The anal retractors placed in the anus. Patient had a large left lateral hemorrhoidal column. This was grasped with the Allis clamps and then dissected and removed with the Harmonic scissors. The right anterior and right posterior hemorrhoidal columns removed in identical fashion. There was no bleeding seen. A piece of Gelfoam was placed anus. Patient top she will was sent to recovery room stable condition.
[2019-03-07 09:28] VITALS: RESP 16
[2019-03-07 10:01] VITALS: BP 120/74; PULSE 73
== END 2019-03-07 10:21 | disposition home or self-care (01) ==
LOC: OR 07:38
PROVIDERS: ATTEND Surgery
DX: K64.5 Perianal venous thrombosis (principal); K64.8 Other hemorrhoids; I25.10 Atherosclerotic heart disease of native coronary artery without angina pectoris; I10 Essential (primary) hypertension; I25.2 Old myocardial infarction; Z95.5 Presence of coronary angioplasty implant and graft; E78.5 Hyperlipidemia, unspecified; K21.9 Gastro-esophageal reflux disease without esophagitis; I34.0 Nonrheumatic mitral (valve) insufficiency; I36.1 Nonrheumatic tricuspid (valve) insufficiency; Z87.891 Personal history of nicotine dependence; Z86.14 Personal history of Methicillin resistant Staphylococcus aureus infection; Z98.1 Arthrodesis status; Z79.82 Long term (current) use of aspirin; Z79.899 Other long term (current) drug therapy; Z88.6 Allergy status to analgesic agent; Z80.9 Family history of malignant neoplasm, unspecified
CPT/HCPCS: 46260; 88304; J2250; J1644; J1100; J2405; J0690; J3010; J2704

== ENCOUNTER → 2019-12-08 | Outpatient (CLI) | payer MEDICARE | END | disposition home or self-care (01) | LOC: LABWHC1 07:15 | PROVIDERS: ATTEND Internal Medicine Cardiovascular Disease | DX: U07.1 COVID-19 (principal) | CPT/HCPCS: 87635 ==

== ENCOUNTER 2019-12-10 08:13 | Day surgery (SDC) | payer MEDICARE ==
[2019-12-09 09:07] VITALS: BMI 30.9
[~2019-12-10 08:13] MED LIST changes: +ALPRAZolam 0.25 MG TAB PO PRN; +ALPRAZolam 0.5 MG TAB PO PRN; +ASPIRIN 325 MG TAB PO ONE; +ATORVASTATIN 80 MG TAB PO ONE; -DEXAMETHASONE SOD PHOSPHATE 10 MG/ML 1 ML VIAL IV ONE; -HEPARIN SODIUM,PORCINE 5,000 UNIT/ML 1 ML VIAL SQ ONE; -HYDROmorphone 0.5 MG/0.5 ML SYRINGE IVP PRN; -LACTATED RINGERS 1,000 ML IV SCH; -LIDOCAINE 1% 20 ML VIAL (10MG/ML) FOR IV START INTRADERMA PRN; -MIDAZOLAM 2 MG/2 ML VIAL IV PRN; +NITROGLYCERIN SL TABS 0.4 MG TAB SUBLINGUAL PRN; -ONDANSETRON 4 MG/2 ML VIAL IVP ONE; -Pre Op ABX Message 1 EACH MISC MISCELLANE ONE; -SCOPOLAMINE 1.5MG/72HR PATCH TRANSDERM ONE; +SODIUM CHLORIDE 0.9% 1,000 ML in EMPTY BAG 1 BAG IV ONE
[2019-12-10] MEDS ORDERED: VERAPAMIL 2.5 MG/ML 2 ML AMP ONE (08:41)
[2019-12-10] MEDS ORDERED: LIDOCAINE 1% INJ 10MG/ML (20 ML MDV) ONE (08:42)
[2019-12-10] MEDS ORDERED: fentaNYL (PF) 50 MCG/ML 2 ML AMP ONE (08:42)
[2019-12-10] MEDS ORDERED: HEPARIN SODIUM 1,000 UN/ML (10ML VL) ONE (08:42)
[2019-12-10 08:48] LABS: Glucose,Whole Blood 121 mg/dL (75-99)
[2019-12-10 08:51] VITALS: RESP 16; TEMP 98.1
[2019-12-10 08:54] LABS: Basophils % (A) 1 %; Eosinophils # (A) 0.2 k/uL (0-0.7); Eosinophils % (A) 2 %; HCT 52.1 % (39.0-53.0); HGB 16.9 gm/dL (13.0-17.5); Lymphocytes # (A) 2.2 k/uL (1.0-4.8); Lymphocytes % (A) 26 %; MCH 29.3 pg (25.0-35.0); MCHC 32.4 g/dL (31.0-37.0); MCV 90.3 fL (80.0-100.0); Mean Platelet Volume 6.8; Monocytes # (A) 0.5 k/uL (0-1.0); Monocytes % (A) 6 %; Neutrophils # (A) 5.5 k/uL (1.3-7.7); Neutrophils % (A) 63 %; Platelet Count 252 k/uL (150-450); RBC 5.77 m/uL (4.30-5.90); RDW 12.8 % (11.5-15.5); WBC 8.6 k/uL (3.8-10.6)
[2019-12-10] MEDS ORDERED: fentaNYL (PF) 50 MCG/ML 2 ML AMP IV ONE (09:05)
[2019-12-10] MEDS ORDERED: MIDAZOLAM 2 MG/2 ML VIAL IV ONE (09:05)
[2019-12-10] MEDS ORDERED: LIDOCAINE 1% INJ 10MG/ML (20 ML MDV) SQ ONE (09:07)
[2019-12-10 09:09] LABS: Calcium 9.1 mg/dL (8.4-10.2)
[2019-12-10] MEDS: VERAPAMIL SYRINGE (5 MG/10 ML) INTRAARTER ONE ×2 (09:09→09:19)
[2019-12-10] MEDS ORDERED: HEPARIN SODIUM 1,000 UN/ML (10ML VL) IV ONE (09:10)
[2019-12-10] MEDS ORDERED: IOPAMIDOL-370 125ML BTL INJ ONE (09:20)
[2019-12-10] MEDS ORDERED: RX INFO: IV CONTRAST WAS GIVEN 1 EACH MISC MISCELLANE PRN (09:27)
[2019-12-10] MEDS ORDERED: SODIUM CHLORIDE 0.9% 1,000 ML IV SCH (09:30)
--- NOTE | 2019-12-10 09:37 | P.CARDCATH ---
Date of Procedure: 12/10/19 Preoperative Diagnosis: Angina with positive stress test Postoperative Diagnosis: Patent stents with mild chronic ischemic heart disease Procedure(s) Performed: Left heart catheterization without left ventriculography Description of Procedure: HISTORY: This is a 69-year-old gentleman with history of ischemic heart disease with a previous stent placement of the diagonal and right coronary artery done in 2016. Patient has been having abdominal discomfort and gaseous feeling and a stress test was suggestive of possible ischemia in the inferolateral segments. Patient is advised to have a cardiac catheterization for definitive diagnosis CONSENT:I have discussed the risks, benefits and alternative therapies for the above-mentioned procedure and for both sedation/analgesia as well as necessary blood product administration, if indicated, as they pertain to this patient. The patient has indicated understanding and acceptance of the risks and procedures discussed. PROCEDURE: Patient was brought to the lab in a fasting state. Patient was given some IV sedation. The right wrist is infiltrated with lidocaine and right radial artery was entered using Seldinger technique. A 6-Guamanian catheter was left in place and selective coronary arteriography was performed. Patient tolerated the procedure well. TR band was applied for hemostasis. No immediate complications were noted and patient was transferred to [facility] in a stable condition Conscious Sedation: Versed 1mg Fentanyl 50 g Duration 13minutes HEMODYNAMICS: Aortic pressure is 140/70. The left ventricular end-diastolic pressure is about 8-12. There was no gradient across the aortic valve SELECTIVE CORONARY ARTERIOGRAPHY: LEFT MAIN: This is a relatively short but free of occlusive disease THE LEFT ANTERIOR DESCENDING CORONARY ARTERY:. This is a fair caliber vessel giving rise to good-sized diagonal branch. The stent in the diagonal branch is patent. Rest of the LAD is free of any significant focal occlusive disease THE LEFT CIRCUMFLEX AND IS CORONARY ARTERY:. This is a nondominant vessel giving rise to small OM branches. The circumflex coronary artery and branches are free of occlusive disease THE RIGHT CORONARY ARTERY:. This is a dominant vessel giving rise good-sized PDA and PLV. There is a patent stent in the distal RCA. There is a stable mild disease in the proximal segment LEFT VENTRICULOGRAPHY: Not performed FINAL IMPRESSION:. Stable coronary artery disease with patent stents in the RCA and also diagonal PLAN: Continued medical therapy and this factor modification. Further evaluation for symptoms of bloating with GI PROGNOSIS: Fair
[2019-12-10 11:55] VITALS: BP 111/65; PULSE 56
== END 2019-12-10 13:40 | disposition home or self-care (01) ==
LOC: CATHCVL 08:13
PROVIDERS: ATTEND Internal Medicine Cardiovascular Disease
DX: I25.119 Atherosclerotic heart disease of native coronary artery with unspecified angina pectoris (principal); R94.39 Abnormal result of other cardiovascular function study; Z95.5 Presence of coronary angioplasty implant and graft; Z72.0 Tobacco use; I25.2 Old myocardial infarction; E78.5 Hyperlipidemia, unspecified; E78.00 Pure hypercholesterolemia, unspecified; Z79.899 Other long term (current) drug therapy; Z79.82 Long term (current) use of aspirin; Z88.6 Allergy status to analgesic agent
CPT/HCPCS: 93458; 80048; 85025; C1769; C1894; J2250; J2001; J3010; J1644; Q9967

== ENCOUNTER → 2023-05-05 | Outpatient (CLI) | payer MEDICARE ==
--- NOTE | 2023-05-12 09:49 | MR ---
EXAMINATION TYPE: MR wrist RT wo con DATE OF EXAM: 05/05/2023 COMPARISON: No radiographic correlation available HISTORY: 72-year-old male M66.241 SPONTANEOUS RUPTURE OF EXTENSOR TENDONS, R, Pain in wrist and hand, limited movement, Lump area distal wrist TECHNIQUE: Multiplanar, multisequence images of the right wrist were obtained without IV contrast. FINDINGS: There is extensive susceptibility artifact at the distal radius relating to the patient's plate and s crew fixation. There is no outside radiographs available to further characterize the fixation. Extens radha image distortion due to the metal. Unable to adequately assess the central disc of the TFC due to artifact. There seems to be some joint space narrowing at the radial lunate joint space. Mild degenerative change first CMC and triscaphe joints. Some cystic change along the ulnar proximal aspect of the lunate. No acute or healing fracture is seen. There is mild to moderate tenosynovial fluid along the fourth extensor tendon compartment. Possible torn and retracted, balled up stump of tendon fibers at the level of the dorsal third-fourth CMC joint, refer to axial series 601 image 11 and sagittal image 14 and 15. Volar flexor tendons show no gross abnormal evaluate. There is mild thickening of the ECUs with mild tenosynovial fluid but without any subluxation. IMPRESSION: 1. Prominent metal artifact relating to the patient's distal radial internal fixation limits the eval uation. There may be some degenerative joint space loss at the radiolunate joint. Unable to assess th e central disc of the TFC due to artifacts. 2. Possible torn, retracted, and balled up stump of tendon fibers at the level of the dorsal third-fo urth CMC joint along the fourth dorsal compartment. Refer to axial series 601 image 11 and sagittal i mage 14 and 15. Further clinical correlation recommended. 3. Mildly ECU tendinosis and tenosynovitis. No tendon subluxation here.
== END | disposition home or self-care (01) ==
LOC: RADMRIMAIN 16:19
PROVIDERS: ATTEND Orthopaedic Surgery Hand Surgery
DX: M66.241 Spontaneous rupture of extensor tendons, right hand (principal); M25.531 Pain in right wrist; M67.431 Ganglion, right wrist; M65.9 Synovitis and tenosynovitis, unspecified

== ENCOUNTER → 2025-02-12 | Outpatient (CLI) | payer MEDICARE ==
--- NOTE | 2025-02-12 16:21 | XR ---
EXAMINATION TYPE: XR cervical spine limited DATE OF EXAM: 02/12/2025 4:15 PM COMPARISON: 07/05/2018 CLINICAL INDICATION: Male, 74 years old with history of M54.2, M54.12; PHH, pain TECHNIQUE: 4 views FINDINGS: No predental space widening or prevertebral soft tissue swelling. Post surgical change C5-C7 ACDF. Mi ld to moderate degenerative disc disease above the fusion at C4-C5 is progressed from 2018. Straighte melinda of the normal cervical lordosis. Normal odontoid view. Alignment is maintained. Moderate facet a nd uncovertebral joint arthropathy throughout. IMPRESSION: 1. Patient with previous C5-C7 ACDF. 2. Mild to moderate degenerative disc disease above the fusion at C4-C5 has progressed from 2018. 3. Additional moderate facet and uncovertebral joint arthropathy throughout. 4. Straightening of the normal cervical lordosis without malalignment. [facility], Workstation: [email or web address], 02/12/2025 4:19 PM
== END | disposition home or self-care (01) ==
LOC: RADXRMAIN 15:43
PROVIDERS: ATTEND Nurse Practitioner Family
DX: M50.123 Cervical disc disorder at C6-C7 level with radiculopathy (principal); M47.22 Other spondylosis with radiculopathy, cervical region; Z98.1 Arthrodesis status
CPT/HCPCS: 72040